=== PATIENT | male | born 1960 | race Caucasian/White ===

== ENCOUNTER 2023-02-14 08:33 | Emergency (ER) | payer OTHER ==
[~2023-02-14] VITALS: Ht 188 cm; Wt 127.0 kg
[~2023-02-14 08:33] MED LIST: ALBU90OI61 INH; CHLORTABS4 MG PO; FLAX PO; HYDACE10B; IBUP400; JUBLIA4 ML TP; NAPR220 PO; RED YEAST RICE600 MG PO; VITAMIN D-32000 UNIT PO
[2023-02-14 08:53] VITALS: BP 139/67
[2023-02-14 08:57] LABS: Source, Urine Clean Catch
[2023-02-14 09:10] LABS: Bilirubin, Urine Neg (Neg); Blood, Urine 4+ (Neg); Glucose Qualitative, Urine Neg (Neg); Ketones, Urine Neg (Neg); Leukocyte Esterase, Urine Neg (Neg); Nitrite, Urine Neg (Neg); Protein, Urine 2+ (Neg); Urobilinogen, Urine NORM (Normal)
[2023-02-14 09:55] LABS: Appearance, Urine Clear (Clear); Color, Urine Yellow (P-Yellow)
[2023-02-14 10:03] LABS: Calcium Oxalate Crystals Mod /hpf
[2023-02-14 10:04] LABS: White Blood Cells, Urine 0-2 /hpf (0-5)
[2023-02-14 10:06] LABS: Squamous Epithelial Cells Not Seen /hpf (Few)
[2023-02-14 10:07] LABS: Bacteria Rare /hpf; Mucus Mod (0-Heavy)
[2023-02-14] MEDS ORDERED: Flomax0.4 MG PO (10:24)
== END 2023-02-14 10:35 | disposition home or self-care (01) ==
LOC: ER 08:33
PROVIDERS: Physician Assistant
DX: R33.9 Retention of urine, unspecified (principal); Z88.2 Allergy status to sulfonamides; Z88.8 Allergy status to other drugs, medicaments and biological substances; Z88.5 Allergy status to narcotic agent; Z79.899 Other long term (current) drug therapy; Z79.891 Long term (current) use of opiate analgesic
CPT/HCPCS: 51702; 81001; 99283-25

== ENCOUNTER 2023-06-18 09:04 | Day surgery (SDC) | payer OTHER ==
[~2023-06-18] VITALS: Ht 193 cm; Wt 131.4 kg
[~2023-06-18 09:04] MED LIST changes: +Flomax0.4 MG PO
[2023-06-18] MEDS ORDERED: ZINC7.5 MG (09:43)
[2023-06-18] MEDS ORDERED: MAGCHL64ER (09:44)
[2023-06-18] MEDS ORDERED: Vitamin C100 M1 (09:44)
[2023-06-18] MEDS ORDERED: TOCO1000 (09:45)
[2023-06-18 11:05] VITALS: BP 122/79
== END 2023-06-18 11:04 | disposition home or self-care (01) ==
LOC: ORSCSDS 09:04
DX: Z12.11 Encounter for screening for malignant neoplasm of colon (principal); Z86.010 Personal history of colon polyps; Z80.0 Family history of malignant neoplasm of digestive organs; D12.3 Benign neoplasm of transverse colon; D12.4 Benign neoplasm of descending colon; F12.20 Cannabis dependence, uncomplicated; G47.30 Sleep apnea, unspecified; G47.33 Obstructive sleep apnea (adult) (pediatric); Z79.899 Other long term (current) drug therapy
CPT/HCPCS: 88305; J2704; J7120